=== PATIENT | female | born 1990 | race Two or more races ===

== ENCOUNTER 2018-08-24 13:40 | Emergency (ER) | payer SELFPAY ==
[~2018-08-24] VITALS: Ht 160 cm; Wt 54.4 kg
[2018-08-24 14:00] VITALS: BP 141/78
== END 2018-08-24 15:11 | disposition left against medical advice (07) ==
LOC: ER 13:45
DX: K59.00 Constipation, unspecified (principal); Z53.21 Procedure and treatment not carried out due to patient leaving prior to being seen by health care provider